=== PATIENT | female | born 1960 | race Caucasian/White ===

== ENCOUNTER → 2023-07-07 12:16 | Outpatient (REF) | payer OTHER, SELFPAY ==
[2023-07-07 13:25] LABS: INR 1.07; PT 13.7 Sec (11.4-14.6)
[2023-07-07 13:26] LABS: APTT 35.2 Sec (23.4-35.0)
[2023-07-07 14:41] LABS: HIV Combo Negative (Negative)
[2023-07-07 15:25] LABS: Hepatitis C Antibody Negative (Negative)
== END ==
LOC: REG 12:16
PROVIDERS: ATTENDING PHYSICIAN Family Medicine
DX: Z01.818 Encounter for other preprocedural examination (principal)
CPT/HCPCS: 36415; 71046; 85610; 85730; 86803; 87389

== ENCOUNTER → 2023-09-25 16:24 | Outpatient (REF) | payer OTHER, SELFPAY | LOC: WDC 16:24 | PROVIDERS: ATTENDING PHYSICIAN Obstetrics & Gynecology; FAMILY PHYSICIAN Family Medicine | DX: Z12.31 Encounter for screening mammogram for malignant neoplasm of breast (principal) | CPT/HCPCS: 77063; 77067 ==

== ENCOUNTER → 2024-09-25 15:17 | Outpatient (REF) | payer BC, SELFPAY | LOC: WDC 15:17 | PROVIDERS: ATTENDING PHYSICIAN Obstetrics & Gynecology; FAMILY PHYSICIAN Family Medicine | DX: Z12.31 Encounter for screening mammogram for malignant neoplasm of breast (principal) | CPT/HCPCS: 77063; 77067 ==